=== PATIENT | male | born 1990 | race Caucasian/White ===

== ENCOUNTER 2017-01-06 20:05 | Emergency (ER) | payer OTHER ==
[~2017-01-06] VITALS: Ht 177.8 cm; Wt 74.8 kg
[2017-01-06] MEDS ORDERED: TETANUS,DIPTH,PERTUSS P/F (BOOSTRIX) 0.5 ML VIAL IM STA (21:16)
--- NOTE | 2017-01-06 21:31 | ED Upper Extremity ---
General Chief Complaint: Laceration Stated Complaint: LT HAND LACERATION Nursing Triage Note: LEFT HAND LACERATION Nursing Sepsis Screen: No Definite Risk History of Present Illness Time seen by provider: 21:10 Initial Comments Patient has a superficial abrasion at the base of the left fifth finger on the dorsal surface. No active bleeding. He's had a previous history of injury to the extensor tendon on the same digit and has slight limitation of motion admit from this injury. He is right-hand dominant. Onset: just prior to arrival Pain/Injury Location: left 5th finger Method of Injury: incised Modifying Factors: Improves With Rest Allergies and Home Medications Allergies Coded Allergies: No Known Drug Allergies (Unverified , 01/06/17) Home Medications No Active Prescriptions or Reported Meds Constitutional: no symptoms reported Skin: see HPI, lesions Past Vwalbji-Jybkib-Bfaggd Hx Patient Social History Alcohol Use: Occasionally Uses Number of Drinks Today: 0 Alcohol Beverage of Choice: Beer Recreational Drug Use: Yes Drug of Choice: CANNIBUS Smoking Status: Current Everyday Smoker Type Used: Cigarettes 2nd Hand Smoke Exposure: Yes Recent Foreign Travel: No Contact w/Someone Who Travel: No Recent Infectious Disease Expo: No Recent Hopitalizations: No Immunizations Up To Date Tetanus Booster (TDap): Unknown PED Vaccines UTD: Yes Seasonal Allergies Seasonal Allergies: No Surgeries History of Surgeries: No Respiratory History of Respiratory Disorde: No Cardiovascular History of Cardiac Disorders: No Neurological History of Neurological Disord: No Genitourinary History of Genitourinary Disor: No Gastrointestinal History of Gastrointestinal Di: No Musculoskeletal History of Musculoskeletal Dis: No Endocrine History of Endocrine Disorders: No HEENT History of HEENT Disorders: No Cancer History of Cancer: No Psychosocial History of Psychiatric Problem: No Integumentary History of Skin or Integumenta: No Blood Transfusions History of Blood Disorders: No Reviewed Nursing Assessment Reviewed/Agree w Nursing PMH: Yes Physical Exam Vital Signs Vital Sign - Last 12Hours 01/06/17 20:25 Temp 98.7 Pulse 86 Resp 18 B/P (MAP) 145/89 Pulse Ox 100 O2 Delivery Room Air Capillary Refill : Less Than 3 Seconds General Appearance: WD/WN, no apparent distress Cardiovascular: normal peripheral pulses, regular rate, rhythm Respiratory: chest non-tender Hand: non-tender, Left, laceration (0.5 cm superficial laceration at the base of the fifth finger, volar surface) Neurologic/Psychiatric: no motor/sensory deficits, alert, normal mood/affect, oriented x 3 Progress/Results/Core Measures Results/Orders My Orders Orders - HODA MADISON Dipht,Pertuss(Acell),Tet Adult (Boostrix (01/06/17 21:16) Vital Signs/I&O Vital Sign - Last 12Hours 01/06/17 01/06/17 20:25 21:38 Temp 98.7 98.7 Pulse 86 86 Resp 18 18 B/P (MAP) 145/89 Pulse Ox 100 100 O2 Delivery Room Air Blood Pressure Mean: 107 Progress Note : Time: 21:10 Progress Note Wound cleansed with Hibiclens. Steri-Strips applied and sterile dressing. Departure Impression Impression: Primary Impression: Abrasion of left hand Qualified Codes: S60.512A - Abrasion of left hand, initial encounter Disposition: HOME, SELF-CARE Condition: Improved Departure-Patient Inst. Decision time for Depature: 21:20 Referrals: ABE RICHTER DO (PCP/Family) Primary Care Physician Patient Instructions: Skin Abrasions (DC) Add. Discharge Instructions: Keep Steri-Strips in place until they peel up and fall off. Keep covered with a Band-Aid. Activity as tolerated. Return to emergency department for new problems. All discharge instructions reviewed with patient and/or family. Voiced understanding. Scripts No Active Prescriptions or Reported Meds HODA MADISON Jan 06, 2017 21:31
[2017-01-06 21:38] VITALS: BP 145/89
== END 2017-01-06 21:37 | disposition home or self-care (01) ==
LOC: ER 20:10
DX: S60.417A Abrasion of left little finger, initial encounter (principal); F17.210 Nicotine dependence, cigarettes, uncomplicated; F12.10 Cannabis abuse, uncomplicated; Z23 Encounter for immunization; X58.XXXA Exposure to other specified factors, initial encounter
CPT/HCPCS: 90471; 90715; 99284